=== PATIENT | female | born 1990 ===

== ENCOUNTER 2016-08-02 14:43 | Emergency (ER) | payer BC ==
[2016-08-02 15:54] VITALS: BP 117/88
--- NOTE | 2016-08-02 16:35 | UC ---
Complaint Female HPI - HPI Summary HPI Summary: urinary symptoms , burning, urgency and frequency began today no back pain or fevers--last UTI 2-3 moths ago treated with Sulfa. Also has a couple of days of cough no relief with Robitussin - History Of Current Complaint Chief Complaint: UCGU Stated Complaint: FREQUENT URINATION Time Seen by Provider: 08/02/16 16:20 Hx Obtained From: Patient Hx Last Menstrual Period: 2 WEEKS AGO ?: No Onset/Duration: Sudden Onset - uti sx, Gradual Onset - cough, Still Present Timing: Constant Severity Initially: Mild Severity Currently: Mild Character: Burning Aggravating Factor(s): Urination Alleviating Factor(s): Nothing Associated Signs And Symptoms: Negative: Fever, Back Pain, Vaginal Bleeding/ Discharge, Vaginal Discharge, Nausea, Vomiting(# Of Episodes =), Genital Swelling, Genital Blisters, Retained Foregin Body (Specify) - Allergies/Home Medications Allergies/Adverse Reactions: Allergies Allergy/AdvReac Type Severity Reaction Status Date / Time Penicillins Allergy Unknown Verified 08/02/16 15:54 Reaction Details Sulfa Antibiotics Allergy Agitation Verified 08/02/16 15:54 Home Medications: Home Medications Cystex* PRN 08/02/16 [History] guaiFENesin LIQ* [Robitussin*] PRN 08/02/16 [History] PMH/Surg Hx/FS Hx/Imm Hx Previously Healthy: No Endocrine History Of: Reports: Thyroid Disease Denies: Diabetes, Hyperthyroidism, Hypothyroidism, Dyslipidemia Cardiovascular History Of: Denies: Cardiac Disorders, Hypertension, Pacemaker/ICD, Myocardial Infarction , Congestive Heart Failure, Atrial Fibrillation, Deep Vein Thrombosis, Bleeding Disorders Respiratory History Of: Denies: COPD, Asthma, Bronchitis, Pneumonia, Pulmonary Embolism GI/ History Of: Denies: Gastroesophageal Reflux, Ulcer, Gastrointestinal Bleed, Gall Bladder Disease, Kidney Stones, Diverticulitis, Renal Disease, Urosepsis Neurological History Of: Denies: TIA, CVA, Dementia, Seizures, Migraine Psychological History Of: Reports: Depression Denies: Anxiety, Bipolar Disorder, Schizophrenia, Post Traumatic Stress Disorder Cancer History Of: Denies: Lung Cancer, Colorectal Cancer, Breast Cancer, Prostate Cancer, Cervical Cancer Other History Of: Negative For: HIV, Hepatitis B, Hepatitis C, Anticoagulant Therapy - Surgical History Surgical History: None - Family History Known Family History: Positive: Cardiac Disease, Diabetes Negative: Hypertension, Renal Disease, Blood Disorder - Social History Occupation: Employed Full-time Lives: With Family Alcohol Use: None Substance Use Type: None Smoking Status (MU): Never Smoked Tobacco Review of Systems Constitutional: Negative Skin: Negative Eyes: Negative ENT: Negative Respiratory: Cough Cardiovascular: Negative Gastrointestinal: Negative Genitourinary: Dysuria, Frequency, Urgency Motor: Negative Neurovascular: Negative Musculoskeletal: Negative Neurological: Negative Psychological: Negative All Other Systems Reviewed And Are Negative: Yes Physical Exam Triage Information Reviewed: Yes Appearance: Well-Appearing, No Pain Distress, Well-Nourished Vital Signs: Initial Vital Signs Temp 99.3 F 08/02/16 15:50 Pulse 87 08/02/16 15:50 Resp 16 08/02/16 15:50 BP 117/88 08/02/16 15:50 Pulse Ox 99 08/02/16 15:50 Vital Signs Reviewed: Yes Eye Exam: Normal Eyes: Positive: Conjunctiva Clear ENT Exam: Normal ENT: Positive: Normal ENT inspection, Hearing grossly normal, Pharynx normal, TMs normal. Negative: Nasal congestion, Nasal drainage, Tonsillar swelling, Tonsillar exudate, Trismus, Muffled/hoarse voice Dental Exam: Normal Neck exam: Normal Neck: Positive: Supple, Nontender, No Lymphadenopathy Respiratory Exam: Normal Respiratory: Positive: Chest non-tender, Lungs clear, Normal breath sounds, No respiratory distress, No accessory muscle use Cardiovascular Exam: Normal Cardiovascular: Positive: RRR, No Murmur, Pulses Normal, Brisk Capillary Refill Abdominal Exam: Normal Abdomen Description: Positive: Nontender, No Organomegaly, Soft Bowel Sounds: Positive: Present Musculoskeletal Exam: Normal Musculoskeletal: Positive: Strength Intact, ROM Intact, No Edema Neurological Exam: Normal Neurological: Positive: Alert, Muscle Tone Normal Psychological Exam: Normal Skin Exam: Normal Diagnostics - Laboratory Diagnostic Studies Completed/Ordered: UA -75 leuks, Complaint Female Dx - Course Course Of Treatment: Macrobid and pyridium tesalon, albuterol increase fluids , follow up with pcp re-check prn - Differential Dx/Diagnosis Differential Diagnosis/HQI/PQRI: Renal Colic, Ureteral Stone, Urinary Tract Infection Provider Diagnoses: UTI Discharge - Discharge Plan Condition: Stable Disposition: HOME Prescriptions: Albuterol HFA INHALER* [Ventolin HFA Inhaler*] 2 puff INH Q6H PRN #1 mdi PRN Reason: Cough Benzonatate CAP* [Tessalon CAP*] 100 mg PO TID PRN #40 cap PRN Reason: cough Nitrofurantoin Monohyd Macro [Macrobid] 100 mg PO BID #20 cap Patient Education Materials: Urinary Tract Infection in Women (ED), Acute Cough (ED) Referrals: [facility] [place] PHYSICIAN REFERRAL [Outside] - If Needed No Primary Care Phys,NOPCP [Primary Care Provider] -
== END 2016-08-02 16:49 | disposition home or self-care (01) ==
LOC: UCEAST 14:43
DX: N39.0 Urinary tract infection, site not specified (principal); Z87.440 Personal history of urinary (tract) infections; R05 Cough; Z88.4 Allergy status to anesthetic agent; Z88.0 Allergy status to penicillin; Z88.2 Allergy status to sulfonamides
CPT/HCPCS: 81002; 87086; 99212; G0463

== ENCOUNTER 2017-10-20 07:17 | Emergency (ER) | payer BC, OTHER ==
[2017-10-20 07:40] VITALS: BP 113/78
--- NOTE | 2017-10-20 08:05 | UC ---
Ozzy Ochoa Nilda, scribed for Milla Mondragon MD on 10/20/17 at 0754 . Abdominal Pain Female HPI - HPI Summary HPI Summary: This patient is a 27 year old F presenting to [facility] with a chief complaint of constant epigastric abd pain with N/V/D since 10/12/17. She notes she has had 4 episodes of brown, watery, malodorous diarrhea since 0300 this morning. The patient rates the pain 5/10 in severity. Patient reports shes able to eat, drink, and keep down food, noting that her vomiting has resolved for the past few days. Patient denies bloody stool, melena, fever, and chills. She states she has not taken medications for symptoms, and denies recent abx. Patient was visiting family in the [facility] for 2 weeks and recently returned 10/17/17. Pt states thinks has food poisoning but concerned because diarrhea persists. No family contact in [facility] with illness She states recent sick contact with boyfriend who has had similar symptoms for the same amount of time and had also travelled to the [facility]. However, his sx are mostly nausea and vomiting No ongoing fevers - only day 1 No rash. + continues with UOP Allergies include penicillin and sulfa abx. Pt has depo Patients medication reviewed this visit. - History of Current Complaint Stated Complaint: DIARRHEA NAUSEA Time Seen by Provider: 10/20/17 07:35 Hx Obtained From: Patient Hx Last Menstrual Period: no period - depo shot 06/2017 ?: No Onset/Duration: Sudden Onset, Lasting Weeks, Still Present Timing: Constant Severity Currently: Moderate Pain Intensity: 5 Pain Scale Used: 0-10 Numeric Location: Epigastric Radiates: No Aggravating Factor(s): Other: - BM Alleviating Factor(s): Nothing Associated Signs and Symptoms: Positive: Nausea, Vomiting - resolved a few days ago, Diarrhea, Other: - negative chills, bloody stool, melena. Negative: Fever Allergies/Adverse Reactions: Allergies Allergy/AdvReac Type Severity Reaction Status Date / Time Penicillins Allergy Hives Verified 10/20/17 07:32 Sulfa (Sulfonamide Allergy Anxiety Verified 10/20/17 07:32 Antibiotics) Home Medications: Home Medications ARIPiprazole TAB* [Abilify TAB*] 5 mg PO DAILY 10/20/17 [History Confirmed ] Escitalopram Oxalate [Lexapro] 5 mg PO DAILY 10/20/17 [History Confirmed ] Gabapentin CAP(*) [Neurontin 100 mg CAP(*)] 100 mg PO BID 10/20/17 [History Confirmed 10/20/17] medroxyPROGESTERone ACETATE* [DEPO-Provera*] 1 dose IM SEE INSTRUCTIONS [History Confirmed 10/20/17] PMH/Surg Hx/FS Hx/Imm Hx Endocrine History: Thyroid Disease Psychological History: Depression Other History Of: Negative For: HIV, Hepatitis B, Hepatitis C, Anticoagulant Therapy - Surgical History Surgical History: None - Family History Known Family History: Positive: Cardiac Disease, Diabetes Negative: Hypertension, Renal Disease, Blood Disorder - Social History Occupation: Employed Full-time - respiratory therapist Alcohol Use: None Substance Use Type: None Smoking Status (MU): Never Smoked Tobacco Review of Systems Constitutional: Other - negative fever, chills Gastrointestinal: Abdominal Pain, Vomiting - resolved a few days ago, Diarrhea, Nausea, Other - negative bloody stool, melena All Other Systems Reviewed And Are Negative: Yes Physical Exam Triage Information Reviewed: Yes Appearance: Well-Appearing, No Pain Distress, Well-Nourished Vital Signs: Initial Vital Signs Temp 98 F 10/20/17 07:34 Pulse 78 10/20/17 07:34 Resp 18 10/20/17 07:34 BP 113/78 10/20/17 07:34 Pulse Ox 99 10/20/17 07:34 Vital Signs Reviewed: Yes Eye Exam: Normal Eyes: Positive: Conjunctiva Clear ENT: Positive: Normal ENT inspection, Hearing grossly normal, Pharynx normal, TMs normal, Other - mmoist Neck exam: Normal Neck: Positive: Supple, Nontender, No Lymphadenopathy Respiratory Exam: Normal Respiratory: Positive: Chest non-tender, Lungs clear, Normal breath sounds, No respiratory distress, No accessory muscle use Cardiovascular Exam: Normal Cardiovascular: Positive: RRR, No Murmur Abdomen Description: Positive: No Organomegaly, Soft. Negative: Nontender - mild epigastric discomfort no guarding + BS soft no distension no hepatomegaly no liver discomfort Bowel Sounds: Positive: Present Musculoskeletal Exam: Normal Musculoskeletal: Positive: Strength Intact Neurological Exam: Normal Neurological: Positive: Alert Psychological Exam: Normal Psychological: Positive: Normal Response To Family Skin Exam: Normal Skin: Positive: significant lesion(s) - no jaundice Abd Pain Female Course/Dx - Course Course Of Treatment: Pt with ongoing diarrhea x 7+ days starting in [facility]. Pt with mild episgastric discomfort and nausea No jaundice non concerning abdominal pain. VSS well hydrated. Will send stool cultures. guiaic neg here. Will start zithromax 500mg X 3 days. concsidered hep a- no fever, no RUQ pain, no vomiting, no jaundice - will hold testing at present. encouraged hydration. pt declined zofran. return precautions - Differential Dx/Diagnosis Provider Diagnoses: diarrhea Discharge - Sign-Out/Discharge Documenting (check all that apply): Discharge - Discharge Plan Condition: Stable Disposition: HOME Prescriptions: Azithromycin TAB* [Zithromax TAB (Z-WERO) 250 mg #6 tabs] 500 mg PO DAILY #6 tab Patient Education Materials: Traveler's Diarrhea (ED) Forms: *Work Release Referrals: Malia Fletcher MD [Primary Care Provider] - Additional Instructions: Take antibiotics as prescribed until gone You stool has been sent for additional testing. If you need a different antibiotic or change in your treatment plan, you will receive a call from a care steam table attendant It is important that you stay hydrate - frequent sips of electrolyte fluids - juice, gatorade, pedialyte, popsicles Get plenty of restful sleep If you develop increased abdominal pain, fever, chills, jaundice (color change to your skin or eyes) or ANY other concerns - you should go to the emergency department for further evaluation - Billing Disposition and Condition Condition: STABLE Disposition: HOME The documentation as recorded by the Ozzy rodriguez Nilda accurately reflects the service I personally performed and the decisions made by , Milla Mondragon MD.
--- NOTE | 2017-10-22 14:52 | UC ---
- Progress Note Progress Note: Stool culture results normal. Fecal lactoferrin positive, which is a nonspecific marker for intestinal inflammation. If symptoms persist - needs f/u with PCP. Discharge - Sign-Out/Discharge Documenting (check all that apply): Post-Discharge Follow Up - Discharge Plan Condition: Stable Disposition: HOME Prescriptions: Azithromycin TAB* [Zithromax TAB (Z-WERO) 250 mg #6 tabs] 500 mg PO DAILY #6 tab Patient Education Materials: Traveler's Diarrhea (ED) Forms: *Work Release Referrals: Malia Fletcher MD [Primary Care Provider] - Additional Instructions: Take antibiotics as prescribed until gone You stool has been sent for additional testing. If you need a different antibiotic or change in your treatment plan, you will receive a call from a care swat team member It is important that you stay hydrate - frequent sips of electrolyte fluids - juice, gatorade, pedialyte, popsicles Get plenty of restful sleep If you develop increased abdominal pain, fever, chills, jaundice (color change to your skin or eyes) or ANY other concerns - you should go to the emergency department for further evaluation - Billing Disposition and Condition Condition: STABLE Disposition: HOME
== END 2017-10-20 08:10 | disposition home or self-care (01) ==
LOC: UCEAST 07:17
DX: R19.7 Diarrhea, unspecified (principal); R10.13 Epigastric pain; R11.2 Nausea with vomiting, unspecified; E07.9 Disorder of thyroid, unspecified; F32.9 Major depressive disorder, single episode, unspecified; Z88.0 Allergy status to penicillin; Z88.2 Allergy status to sulfonamides
CPT/HCPCS: 83630; 87045; 87046; 87077; 87177; 87209; 87328; 87329; 87899; 99212; G0463

== ENCOUNTER 2018-10-22 13:59 | Emergency (ER) | payer BC ==
--- NOTE | 2018-10-22 14:18 | ED ---
Psychiatric Complaint - HPI Summary HPI Summary: This patient is a 28 year old F presenting to ED accompanied by her supportive Joe watson, with a chief complaint of SI with a plan since about 1 week ago. She has not taken any actions. She saw a therapist today and was instructed to go to the ED. The patient rates the pain 0/10 in severity. Symptoms aggravated by nothing. Symptoms alleviated by nothing. She says I was manic a few weeks ago then dipped down into depression right after. PMHx of bipolar disorder. She was on abilify but is on lithium now. - History Of Current Complaint Chief Complaint: EDSuicidal Time Seen by Provider: 10/22/18 14:14 Hx Obtained From: Patient Hx Last Menstrual Period: no period - depo shot 06/2017 Onset/Duration: Sudden Onset, Lasting Weeks - about 1 week ago, Still Present Timing: Constant Severity Currently: None Character: Depressed Aggravating Factor(s): Nothing Alleviating Factor(s): Nothing Related History: Positive For: Prior Psychiatric Issues Has Suicidal: Reports: Thoughts, With A Plan. Denies: Demonstrates Gesture Has Homicidal: Denies: Thoughts - Allergies/Home Medications Allergies/Adverse Reactions: Allergies Allergy/AdvReac Type Severity Reaction Status Date / Time Penicillins Allergy Hives Verified 10/22/18 14:07 Sulfa (Sulfonamide Allergy Anxiety Verified 10/22/18 14:07 Antibiotics) Home Medications: Home Medications FLUoxetine CAP* [Prozac CAP*] 20 mg PO DAILY 10/22/18 [History Confirmed ] Mccamey Carbonate ER TAB* 450 mg PO DAILY 10/22/18 [History Confirmed 10/22/18] PMH/Surg Hx/FS Hx/Imm Hx Endocrine/Hematology History: Reports: Hx Thyroid Disease Denies: Hx Anticoagulant Therapy, Hx Diabetes Cardiovascular History: Denies: Hx Congestive Heart Failure, Hx Deep Vein Thrombosis, Hx Hypertension , Hx Myocardial Infarction, Hx Pacemaker/ICD Respiratory History: Denies: Hx Asthma, Hx Chronic Obstructive Pulmonary Disease (COPD), Hx Lung Cancer, Hx Pneumonia, Hx Pulmonary Embolism GI History: Denies: Hx Gall Bladder Disease, Hx Gastrointestinal Bleed, Hx Ulcer, Hx Urosepsis History: Denies: Hx Kidney Stones, Hx Renal Disease Neurological History: Denies: Hx Dementia, Hx Migraine, Hx Seizures, Hx Transient Ischemic Attacks (TIA) Psychiatric History: Reports: Hx Depression Denies: Hx Anxiety, Hx Schizophrenia, Hx Bipolar Disorder Infectious Disease History: No Infectious Disease History: Denies: History Other Infectious Disease, Traveled Outside the [place] in Last 30 Days - Family History Known Family History: Positive: Cardiac Disease, Diabetes Negative: Hypertension, Renal Disease, Blood Disorder - Social History Alcohol Use: None Substance Use Type: Reports: None Smoking Status (MU): Never Smoked Tobacco Review of Systems Psychological: Other - SI with plan, had a manic episode a few weeks ago Positive: Depressed All Other Systems Reviewed And Are Negative: Yes Physical Exam - Summary Physical Exam Summary: Appearance: Well appearing, no pain distress Skin: warm, dry, reflects adequate perfusion Head/face: normal Eyes: EOMI, BRUNA ENT: normal Neck: supple, non-tender Respiratory: CTA, breath sounds present Cardiovascular: RRR, pulses symmetrical Abdomen: non-tender, soft Musculoskeletal: normal, strength/ROM intact Neuro: normal, sensory motor intact, A&Ox3 Psych: depressed affect Triage Information Reviewed: Yes Vital Signs On Initial Exam: Initial Vitals Temp Pulse Resp BP Pulse Ox 98 F 84 18 129/94 100 10/22/18 14:09 10/22/18 14:09 10/22/18 14:09 10/22/18 14:09 10/22/18 14:09 Vital Signs Reviewed: Yes Diagnostics - Vital Signs Vital Signs Temp Pulse Resp BP Pulse Ox 10/22/18 14:09 98 F 84 18 129/94 100 - Laboratory Result Diagrams: 10/22/18 14:23 10/22/18 14:23 Lab Statement: Any lab studies that have been ordered have been reviewed, and results considered in the medical decision making process. - Ultrasound No standard instances Ultrasound Interpretation Completed By: Radiologist Summary of Ultrasound Findings: Transvaginal US reveals probable although not definitive early intrauterine gestational sac with estimated gestational age of 5 weeks 2 days based on mean sac diameter. No pole visualized to confirm that this represents a gestational sac. 2.2 cm LEFT ovary corpus luteum versus hemorrhagic cyst. No suspicious extraovarian adnexal region lesions. Ectopic is not entirely excluded in setting of positive beta hCG without definitive intrauterine gestational sac. Correlate with clinical assessment and consider clinical, beta-HCG, and sonographic follow-up as deemed appropriate. Dr. Galindo has reviewed this radiology report. Course/Dx - Course Assessment/Plan: This patient is a 28 year old F presenting to ED accompanied by her supportive fiJoe rodriguez, with a chief complaint of SI since about 1 week ago. Patient is cleared for MHE at 1515. The patient has probable IUP, but the patient is not in any pain, so ectopic is not likely. Transvaginal US reveals probable although not definitive early intrauterine gestational sac with estimated gestational age of 5 weeks 2 days based on mean sac diameter. No pole visualized to confirm that this represents a gestational sac. 2.2 cm LEFT ovary corpus luteum versus hemorrhagic cyst. No suspicious extraovarian adnexal region lesions. Ectopic is not entirely excluded in setting of positive beta hCG without definitive intrauterine gestational sac. Correlate with clinical assessment and consider clinical, beta-HCG, and sonographic follow -up as deemed appropriate. This patient will be signed out to Dr. Kang upon shift change, pending dispo, awaiting MHE. - Differential Dx/Clinical Impression Differential Diagnosis/HQI/PQRI: Positive: Depression, Suicidal Ideation Provider Diagnosis: Depression, Suicidal ideation Discharge - Sign-Out/Discharge Documenting (check all that apply): Sign-Out Patient - awaiting MHE Signing out patient TO: Bentley Kang Patient Received Moderate/Deep Sedation with Procedure: No - Discharge Plan Condition: Stable Referrals: Malia Fletcher MD [Primary Care Provider] - - Billing Disposition and Condition Condition: STABLE - Attestation Statements Document Initiated by Scribe: Yes Documenting Scribe: Darrell Torres Provider For Whom Scribe is Documenting (Include Credential): Foster Galindo MD Scribe Attestation: Darrell Ochoa, scribed for Foster Galindo MD on 10/22/18 at 1822. Scribe Documentation Reviewed: Yes Provider Attestation: The documentation as recorded by the Darrell rodriguez accurately reflects the service I personally performed and the decisions made by , Foster Galindo MD Status of Scribe Document: Viewed
[2018-10-22 14:28] LABS: ABS Basophils 0.1 10^3/ul (0-0.2); ABS Eosinophils 0.1 10^3/ul (0-0.6); ABS Lymphocytes 1.4 10^3/ul (1.0-4.8); ABS Monocytes 0.6 10^3/ul (0-0.8); ABS Neutrophils 7.1 10^3/ul (1.5-7.7); ABS Nucleated RBC 0 10^3/ul; Eosinophil % 1.5 %; Hematocrit 40 % (33-41); Hemoglobin 13.4 g/dL (12.0-16.0); Lymphocyte % 15.2 %; Mean Corpuscular HGB Conc 34 g/dL (31-36); Mean Corpuscular Hemoglobin 28 pg (27-31); Mean Corpuscular Volume 84 fL (80-97); Mean Platelet Volume 7.1 fL (7.4-10.4); Nucleated Red Blood Cells % 0; Platelet Count 298 10^3/uL (150-450); Red Blood Count 4.77 10^6 /uL (3.70-4.87); Red Cell Distribution Width 14 % (10.5-15); White Blood Count 9.3 10^3/uL (3.5-10.8)
[2018-10-22 14:45] LABS: ALT 13 U/L (7-52); AST 16 U/L (13-39); Albumin 4.6 g/dL (3.2-5.2); Albumin/Globulin Ratio 1.6 (1-3); Alkaline Phosphatase 35 U/L (34-104); Anion Gap 9 mmol/L (2-11); BUN/Creatinine Ratio 13.8 (8-20); Blood Urea Nitrogen 8 mg/dL (6-24); CO2 Carbon Dioxide 21 mmol/L (22-32); Calcium 9.3 mg/dL (8.6-10.3); Chloride 105 mmol/L (101-111); EGFR African American 147.7 (>60); EGFR Non-African American 122.1 (>60); Globulin 2.9 g/dL (2-4); Glucose 95 mg/dL (70-100); Potassium 3.7 mmol/L (3.5-5.0); Sodium 135 mmol/L (135-145); Total Protein 7.5 g/dL (6.4-8.9)
[2018-10-22 15:03] LABS: Acetaminophen < 15 mcg/mL; Alcohol < 10 mg/dL (<10); Salicylate < 2.50 mg/dL (<30)
[2018-10-22 15:19] LABS: TSH (Thyroid Stimulating Horm) 0.58 mcIU/mL (0.34-5.60)
[2018-10-22] MEDS ORDERED: Acetaminophen TAB* 325 MG PO ONE (19:16)
--- NOTE | 2018-10-22 19:52 | ED ---
Progress - Progress Note Progress Note: The pt is a signout from Dr. Galindo pending transfer. - Consult/PCP Time Called: 15:41 Course/Dx - Course Course Of Treatment: The pt is a signout from Dr. Galindo pending mental health transfer. According to Dr. Mora, the pt is stable to be discharged with a dx of bipolar disorder. The pt is agreeable with this plan. - Diagnoses Provider Diagnoses: Bipolar disorder Discharge - Sign-Out/Discharge Documenting (check all that apply): Patient Departure, Receiving Sign-Out Receiving patient FROM: Foster Galindo Patient Received Moderate/Deep Sedation with Procedure: No - Discharge Plan Condition: Stable Disposition: HOME Referrals: Malia Fletcher MD [Primary Care Provider] - - Attestation Statements Document Initiated by Sarahibe: Yes Documenting Scribe: Olamide Carvalho Provider For Whom Leonor is Documenting (Include Credential): Bentley Kang MD. Scribe Attestation: Olamide Ochoa, alexed for Bentley Kang MD. on 10/22/18 at 1952. Status of Scribe Document: Ready
[2018-10-22 21:06] VITALS: BP 115/82
== END 2018-10-22 21:03 | disposition home or self-care (01) ==
LOC: ED 13:59
DX: R45.851 Suicidal ideations (principal); F31.9 Bipolar disorder, unspecified; R93.89 Abnormal findings on diagnostic imaging of other specified body structures; E07.9 Disorder of thyroid, unspecified; Z79.899 Other long term (current) drug therapy; Z88.0 Allergy status to penicillin; Z88.2 Allergy status to sulfonamides
CPT/HCPCS: 36415; 76817; 80053; 80320; 80329; 84443; 84702; 85025; 99284; A9270-GY; G0480

== ENCOUNTER 2018-10-31 09:40 | Emergency (ER) | payer BC ==
[2018-10-31] MEDS ORDERED: Ondansetron INJ* 2 MG/ML VIAL IV ONE (11:37)
[2018-10-31] MEDS ORDERED: NS 0.9% 1000 ML** 1,000 ML IV ONE (11:37)
--- NOTE | 2018-10-31 11:50 | UC ---
Nausea/Vomiting/Diarrhea HPI - HPI Summary HPI Summary: 28-year-old female was approximately 6 weeks presents with complaints of severe morning sickness. States she's been having severe nausea and over the past 3 days having multiple episodes of vomiting especially first thing in the morning. Associated with some mild dizziness and lightheadedness. Denies fever, chills, abdominal pain, diarrhea, abdominal pain, cramping, or vaginal bleeding. Patient was in the emergency room on 10/22/2018 for some suicidal ideation and was found to be at that time. She had a quantitative hCG of 3073 miU/ml and a transvaginal ultrasound that showed a probable intrauterine gestational sac estimated to be about 5 weeks and 2 days. Last menstrual period was 09/25/2018. She has follow-up scheduled with OB on 2018. - History of Current Complaint Chief Complaint: UCGeneralIllness Stated Complaint: VOMITING Time Seen by Provider: 10/31/18 11:12 Hx Obtained From: Patient Hx Last Menstrual Period: 09/25/18 Pain Intensity: 0 - Allergies/Home Medications Allergies/Adverse Reactions: Allergies Allergy/AdvReac Type Severity Reaction Status Date / Time Penicillins Allergy Hives Verified 10/31/18 09:52 Sulfa (Sulfonamide Allergy Anxiety Verified 10/31/18 09:52 Antibiotics) PMH/Surg Hx/FS Hx/Imm Hx Previously Healthy: Yes Psychological History: Depression Other History Of: Negative For: HIV, Hepatitis B, Hepatitis C, Anticoagulant Therapy - Surgical History Surgical History: None - Family History Known Family History: Positive: Cardiac Disease, Diabetes Negative: Hypertension, Renal Disease, Blood Disorder - Social History Occupation: Employed Full-time Lives: With Family Alcohol Use: None Substance Use Type: None Smoking Status (MU): Never Smoked Tobacco Review of Systems All Other Systems Reviewed And Are Negative: Yes Constitutional: Negative: Fever, Chills Skin: Negative: Rash Respiratory: Negative: Shortness Of Breath, Cough Cardiovascular: Negative: Palpitations, Chest Pain Gastrointestinal: Positive: Vomiting, Nausea. Negative: Abdominal Pain, Diarrhea Genitourinary: Positive: Frequency. Negative: Dysuria, Hematuria, Urgency, Vaginal/Penile Discharge, Abnormal Bleeding Musculoskeletal: Positive: Negative Neurological: Positive: Negative Is Patient Immunocompromised?: No Physical Exam - Summary Physical Exam Summary: GENERAL APPEARANCE: Well developed, well nourished, alert and cooperative, and appears to be in no acute distress. EYES: Conjunctiva clear. No drainage. Vision is grossly intact. EARS: External auditory canals and tympanic membranes clear, hearing grossly intact. NOSE: No nasal discharge. THROAT: Pharynx normal No tonsilar inflammation, swelling, exudate, or lesions. Uvula midline. Oral cavity normal. Teeth and gingiva in good general condition. NECK: Neck supple, non-tender without lymphadenopathy. CARDIAC: Normal S1 and S2. No S3, S4 or murmurs. Rhythm is regular. There is no peripheral edema, cyanosis or pallor. Extremities are warm and well perfused. Capillary refill is less than 2 seconds. Peripheral pulses intact. LUNGS: Clear to auscultation without rales, rhonchi, wheezing or diminished breath sounds. ABDOMEN: Positive bowel sounds. Soft, nondistended, nontender. No guarding or rebound. No masses or hepatosplenomegally. No CVA tenderness. MUSKULOSKELETAL: ROM intact to all extremities. No joint erythema or tenderness. Normal muscular development. Normal gait. SKIN: Skin normal color, texture and turgor with no lesions or eruptions. Triage Information Reviewed: Yes Vital Signs: Initial Vital Signs Temp 98 F 10/31/18 09:49 Pulse 88 10/31/18 09:49 Resp 17 10/31/18 09:49 BP 105/69 10/31/18 09:49 Pulse Ox 100 10/31/18 09:49 Vital Signs Reviewed: Yes Re-Evaluation - Re-Evaluation First Eval Re-Evaluation Time: 12:40 Change: Improved Comment: Patient reports nausea improved. She has currently received 500 ml NS. She is taking PO fluids and eating saltine crackers without further episodes of vomiting. Will plan to finish the remaining fluids and discharge home with some ondansetron PRN. Naus/Vom/Diarrhea Course/Dx - Course Course Of Treatment: 28-year-old female was approximately 6 weeks presents with complaints of severe morning sickness. States she's been having severe nausea and over the past 3 days having multiple episodes of vomiting especially first thing in the morning. Associated with some mild dizziness and lightheadedness. Denies fever, chills, abdominal pain, diarrhea, abdominal pain, cramping, or vaginal bleeding. Patient was in the emergency room on 10/22/2018 for some suicidal ideation and was found to be at that time. She had a quantitative hCG of 3073 miU/ml and a transvaginal ultrasound that showed a probable intrauterine gestational sac estimated to be about 5 weeks and 2 days. Last menstrual period was 09/25/2018. She has follow-up scheduled with OB on 2018. Afebrile. Vital signs stable. Exam was overall unremarkable. I did discuss the risks of using an ondansetron and with the patient and she elected to utilize. She was given a liter of normal saline IV and a dose of ondansetron 4 mg IV with improvement in her symptoms. She was able to tolerate oral fluids and some crackers in the clinic with no further episodes of vomiting. I will provide her with a few doses of an ondansetron 4 mg every 8 hours as needed for nausea and vomiting. We discussed the importance of oral rehydration and diet modification for management of her nausea and vomiting. She is to follow-up with her primary care provider in 3 days if symptoms are not better and to keep her appointment with OB as scheduled. Anticipatory guidance and warning symptoms requiring evaluation in the emergency room were reviewed with the patient. Verbalizes understanding and agrees with plan of care - Differential Dx/Diagnosis Differential Diagnoses - Female: Gastroenteritis (Viral), Gastroenteritis ( Bacterial), Vomiting, Diarrhea, Other - hyperemesis gravidarum Provider Diagnosis: Hyperemesis gravidarum Is Visit Related: Yes Condition At Discharge: Stable Discharge - Sign-Out/Discharge Documenting (check all that apply): Patient Departure All imaging exams completed and their final reports reviewed: No Studies - Discharge Plan Condition: Stable Disposition: HOME Prescriptions: Ondansetron [Ondansetron Odt] 4 mg PO Q8HR PRN #9 tab.rapdis PRN Reason: Nausea/Vomiting Patient Education Materials: Hyperemesis Gravidarum (ED) Referrals: Malia Fletcher MD [Primary Care Provider] - 3 Days Additional Instructions: Use ondansetron 4 mg 1 tab every 8 hours as needed for nausea and vomiting. To help with the nausea and vomiting of : Be sure to eat before, or as soon as, you feel hungry to avoid an empty stomach. Frequent, small, carbohydrate-predominant meals/snacks, such as soda crackers or dry toast are often best. Meals and snacks should be eaten slowly and in small amounts every one to two hours to avoid an overly full stomach. Eating a snack before getting out of bed in the morning and snacks during the night (eg, crackers with peanut butter or cheese taken prior to getting up for nighttime bathroom trips) may be helpful. Drink plenty of fluids in small frequent amounts to avoid dehydration. Follow up with your primary care provider in 3 days if no improvement. Keep your OB appointment as scheduled on 11/09/2018. Seek immediate medical attention in the emergency room if you develop fever greater than 100.5 F, have persistent vomiting, abdominal pain or cramping, vaginal bleeding, or any worsening of symptoms. - Billing Disposition and Condition Condition: STABLE Disposition: Home
[2018-10-31 14:29] VITALS: BP 110/72
== END 2018-10-31 13:50 | disposition home or self-care (01) ==
LOC: UCEAST 09:40
DX: O21.0 Mild hyperemesis gravidarum (principal); Z3A.01 Less than 8 weeks gestation of pregnancy; Z88.0 Allergy status to penicillin; Z88.2 Allergy status to sulfonamides; O99.89 Other specified diseases and conditions complicating pregnancy, childbirth and the puerperium; R35.0 Frequency of micturition
CPT/HCPCS: 81003; 84702; 96360; 96374; 99212; G0463; J2405

== ENCOUNTER 2019-06-20 20:54 | Inpatient (IN) | payer BC ==
[2019-06-20] MEDS ORDERED: Lactated Ringers 1000 ML Bag* 1,000 ML IV ONE (21:13)
[2019-06-20] MEDS ORDERED: Buffered Lidocaine 1% SYRIN* 1 ML/SYRINGE INTRADERM ONE (21:13)
--- NOTE | 2019-06-20 21:13 | HP ---
General Information - Reason for Visit contractions starting around 7pm - General Information Maternal Age: 28 Grav: 2 Para: 0 SAB: 0 IEA: 1 Estimated Due Date: 06/25/19 Determined By: LMP Gestational Age in Weeks/Days: 39.2 Maternal Blood Type and Rh: AB Positive - Results this Serology/RPR Result: Non-Reactive Rubella Result: Immune HBsAg Result: Negative HIV Result: Negative GBS Culture Result: Positive Past Medical History Pertinent Past Medical History: See Records - asthma, bipolar Pertinent Past Surgical History: None Pertinent Family History: See Records - M: type II DM, hypothyroidism ; MGM: stroke; F: HTN, high chol., CVD - Antepartal Records Antepartal Records: Reviewed, Complicated by: - bipolar disorder, GBS positive, SGA Review of Systems Constitutional: Uncomfortable CV Complaint: No Respiratory: Shortness of Breath: No Gastrointestinal: No Nausea/Vomiting, Normal Bowel Movement Genitourinary: No Dysuria, No Bleeding, No Leaking Fluid, Spotting Musculoskeletal: No Epigastric Pain, Contractions Neurological: No Headache, No Visual Changes Movement: Normal Exam Allergies/Adverse Reactions: Allergies Penicillins Allergy (Verified 10/31/18 09:52) Hives Sulfa (Sulfonamide Antibiotics) Allergy (Verified 10/31/18 09:52) Anxiety - Measurements Height: 5 ft 2 in Pre- Weight: 124 lb - Exam Breast: Breast Exam Deferred CVA: No CVA Tenderness Extremities: No Edema Heart: Normal Rhythm/Heart Sounds HEENT: No Significant Findings Lungs: Clear Bilaterally Rectal: Rectal Exam Deferred Reflexes: DTR 2+ Thyroid: No Thyromegaly - Abdominal Exam Abdomen Exam: Non-Tender - Ultrasound/Biophysical Profile Ultrasound Status: Not Done Targeted Exam Findings Estimated Weight: 6lbs 5oz Cervical Exam: 5cm Effacement: 100% Station: 0 Presenting Part: Vertex Membrane Status: Intact Bleeding/Discharge: None EFM Findings - External Monitor Findings Baseline Heart Rate: 140 External Monitor Findings: Accelerations Present, No Pattern of Variable or Late Decelerations, Variability Moderate, Baseline Stable Contractions: Regular, Moderate, 45-90 Seconds Contraction Frequency: 1-3 Assessment/Plan - Assessment 28 y.o. , 39w2d, GBS +, cat I NST, active labor - Obstetrical Risk Factors Obstetrical Risk Factors: GBS Positive, IUGR - SGA - Plan Plan: Admit - Anticipate Vaginal Delivery - Date/Time of Admission Date of Admission: 06/20/19 Time of Admission: 21:00
[2019-06-20 21:40] LABS: ABS Basophils 0.1 10^3/ul (0-0.2); ABS Eosinophils 0.1 10^3/ul (0-0.6); ABS Lymphocytes 2.3 10^3/ul (1.0-4.8); ABS Monocytes 0.6 10^3/ul (0-0.8); ABS Neutrophils 9.6 10^3/ul (1.5-7.7); Eosinophil % 0.5 %; Hematocrit 39 % (35-47); Hemoglobin 13.2 g/dL (12.0-16.0); Lymphocyte % 18.2 %; Mean Corpuscular HGB Conc 34 g/dL (31-36); Mean Corpuscular Hemoglobin 29 pg (27-31); Mean Corpuscular Volume 85 fL (80-97); Mean Platelet Volume 7.4 fL (7.4-10.4); Nucleated Red Blood Cells % 0.1; Platelet Count 250 10^3/uL (150-450); Red Blood Count 4.54 10^6 /uL (3.70-4.87); Red Cell Distribution Width 14 % (10-15); White Blood Count 12.7 10^3/uL (3.5-10.8)
[2019-06-20] MEDS ORDERED: Lactated Ringers 1000 ML Bag* 1,000 ML IV SCH (22:00)
[2019-06-20] MEDS ORDERED: ceFAZolin 2 GM PREMIX in ORs 2 GM/50 ML BAG IVPB ONE (22:00)
[2019-06-20] MEDS ORDERED: Lidocaine 2% VISCOUS* 15 ML UDC ONE (23:17)
[2019-06-21] MEDS ORDERED: Oxytocin in LR* 20 UNITS/1,000 ML BAG IVPB ONE (00:11)
--- NOTE | 2019-06-21 00:36 | PROCNOTE ---
[facility] OB: Delivery Note - Delivery A Date of : 06/21/19 Time of : 00:05 Sex: Male Gestational Age in Weeks and Days at Delivery: 39 Weeks and 3 Days Delivery Method: Spontaneous Vaginal Labor: Spontaneous Amniotic Fluid: Clear Estimated Blood Loss: 250 Delivered By: Thea Cano - Nursery Level of Nursery: Regular/Bedside - Perineum Perineal Injury Comment: abrasions, repaired Perineal Repair: By Delivering Practioner - Events Delivery Events of Note: Pitocin Only After Delivery, Partial Course of Antibiotics Delivery Events of Note Comment: left nuchal arm
[2019-06-21] MEDS ORDERED: Misoprostol TAB* 200 MCG PR ONE (00:42)
[2019-06-21] MEDS ORDERED: Witch Hazel PAD* JAR TOPICAL PRN (00:42)
[2019-06-21] MEDS ORDERED: Glycerin ADULT SUPP PR PRN (00:42)
[2019-06-21] MEDS ORDERED: Dibucaine 1% 28.35 GM TUBE PR PRN (00:42)
[2019-06-21] MEDS ORDERED: Oxytocin in LR* 20 UNITS/1,000 ML BAG IVPB SCH (01:00)
[2019-06-21] MEDS ORDERED: Lactated Ringers 1000 ML Bag* 1,000 ML IV SCH (01:00)
[2019-06-21] MEDS: Ibuprofen TAB* 600 MG PO PRN ×2 (01:42→20:49)
[2019-06-21] MEDS ORDERED: ceFAZolin VIAL(*) 1 GM in NS 0.9% 50 ML* 50 ML IVPB SCH (06:00)
[2019-06-21] MEDS: Docusate CAP* 100 MG PO SCH ×3 (08:41→20:49)
[2019-06-21] MEDS: Simethicone TAB* 80 MG TAB.CHEW PO SCH ×3 (11:35→19:03)
[2019-06-21] MEDS: Acetaminophen TAB* 325 MG PO PRN (17:54)
[2019-06-22] MEDS: Acetaminophen TAB* 325 MG PO PRN ×3 (00:04→17:15)
[2019-06-22] MEDS: Ibuprofen TAB* 600 MG PO PRN ×3 (04:03→19:44)
[2019-06-22 05:54] LABS: ABS Eosinophils 0.1 10^3/ul (0-0.6); ABS Lymphocytes 2.5 10^3/ul (1.0-4.8); ABS Monocytes 0.5 10^3/ul (0-0.8); ABS Neutrophils 5.9 10^3/ul (1.5-7.7); Eosinophil % 0.9 %; Hematocrit 34 % (35-47); Hemoglobin 11.6 g/dL (12.0-16.0); Lymphocyte % 27.3 %; Mean Corpuscular HGB Conc 35 g/dL (31-36); Mean Corpuscular Hemoglobin 30 pg (27-31); Mean Corpuscular Volume 86 fL (80-97); Mean Platelet Volume 7.4 fL (7.4-10.4); Platelet Count 196 10^3/uL (150-450); Red Blood Count 3.89 10^6 /uL (3.70-4.87); Red Cell Distribution Width 14 % (10-15)
[2019-06-22] MEDS ORDERED: Ferrous Gluconate TAB* 324 MG TAB PO SCH (09:00)
[2019-06-22] MEDS: Docusate CAP* 100 MG PO SCH ×2 (11:47→17:16)
[2019-06-23] MEDS: Ibuprofen TAB* 600 MG PO PRN ×3 (05:22→18:21)
[2019-06-23] MEDS: Acetaminophen TAB* 325 MG PO PRN ×2 (08:19→17:30)
[2019-06-23 08:20] VITALS: BP 120/72
[2019-06-23] MEDS: Docusate CAP* 100 MG PO SCH ×2 (08:20→12:44)
== END 2019-06-23 18:23 | disposition home or self-care (01) | DRG 560 ==
LOC: MCHOBOUT 20:54 → MCHOB 21:11
PROVIDERS: ADMIT Midwife; ATTEND Midwife
PROC: 10E0XZZ Delivery of Products of Conception, External Approach (ICD-10-PCS; principal; 2019-06-21)
PROC: 0HQ9XZZ Repair Perineum Skin, External Approach (ICD-10-PCS; 2019-06-21)
DX: O99.824 Streptococcus B carrier state complicating childbirth (principal); Z37.0 Single live birth; O99.344 Other mental disorders complicating childbirth; F31.9 Bipolar disorder, unspecified; O99.52 Diseases of the respiratory system complicating childbirth; O36.5990 Maternal care for other known or suspected poor fetal growth, unspecified trimester, not applicable or unspecified; O70.0 First degree perineal laceration during delivery; O32.2XX0 Maternal care for transverse and oblique lie, not applicable or unspecified; J45.909 Unspecified asthma, uncomplicated; Z3A.39 39 weeks gestation of pregnancy
CPT/HCPCS: 36415; 85025; 86850; 86900; 86901; A9270-GY; J0690